=== PATIENT | female | born 2000 | race Two or more races ===

== ENCOUNTER 2022-02-12 20:23 | Emergency (ER) | payer OTHER ==
[~2022-02-12] VITALS: Ht 170.2 cm; Wt 95.5 kg
[2022-02-12] MEDS ORDERED: PENICILLIN V POTASSIUM 500 MG TABLET PO ONE (21:30)
[2022-02-12] MEDS ORDERED: TraMADol HCL 50 MG TABLET PO ONE (21:30)
[2022-02-12 22:23] VITALS: BP 135/71
[2022-02-12] MEDS ORDERED: IBUP-2070 PO (22:25)
[2022-02-12] MEDS ORDERED: TRAM50TA4 PO (22:25)
[2022-02-12] MEDS ORDERED: PENI500T2 PO (22:25)
== END 2022-02-12 23:17 | disposition home or self-care (01) ==
LOC: EMS 20:23
DX: K04.7 Periapical abscess without sinus (principal)
CPT/HCPCS: 99283